=== PATIENT | female | born 1945 | race Caucasian/White ===

== ENCOUNTER 2018-01-04 17:24 | Emergency (ER) | payer MEDICARE, OTHER ==
[~2018-01-04] VITALS: Ht 162.6 cm; Wt 87.3 kg
[2018-01-04] MEDS ORDERED: TRESIBA FL100 UNIT/M SC (18:25)
[2018-01-04] MEDS ORDERED: METOPROL TAR25 MG PO (18:26)
[2018-01-04] MEDS ORDERED: BYDUREON2 MG SC (18:26)
[2018-01-04] MEDS ORDERED: ATORVASTATIN CA40 MG PO (18:26)
[2018-01-04] MEDS ORDERED: JANUMET1 TA1 PO (18:27)
[2018-01-04] MEDS ORDERED: XARELTO10 MG PO (18:27)
[2018-01-04] MEDS ORDERED: LISINOPRIL5 MG PO (18:28)
[2018-01-04] MEDS ORDERED: LASIX 20 MG TAB20 MG PO (18:28)
[2018-01-04] MEDS ORDERED: MAG OXIDE400 MG PO (18:29)
[2018-01-04] MEDS ORDERED: DITROPAN XL5 MG PO (18:29)
[2018-01-04] MEDS ORDERED: CHELATED POTASS95 MG PO (18:30)
[2018-01-04] MEDS ORDERED: LORTAB 1010 MG PO (18:30)
[2018-01-04 18:43] VITALS: BP 144/75
== END 2018-01-04 18:55 | disposition home or self-care (01) ==
LOC: ED 17:24
DX: S42.301A Unspecified fracture of shaft of humerus, right arm, initial encounter for closed fracture (principal); E11.9 Type 2 diabetes mellitus without complications; E78.00 Pure hypercholesterolemia, unspecified; Z95.5 Presence of coronary angioplasty implant and graft; W01.0XXA Fall on same level from slipping, tripping and stumbling without subsequent striking against object, initial encounter; Y92.009 Unspecified place in unspecified non-institutional (private) residence as the place of occurrence of the external cause